=== PATIENT | male | born 1930 | race African-American/Black ===

== ENCOUNTER 2018-10-28 17:20 | Inpatient (IN) | payer OTHER ==
[~2018-10-28] VITALS: Ht 188 cm; Wt 60.5 kg
[2018-10-28] MEDS ORDERED: SODIUM CHLORIDE 0.9% 1,000 ML IV ONE ×2 (17:37→20:00)
[2018-10-28 18:24] LABS: BASOPHILS % 1.1 % (0.0-2.0); EOSINOPHILS % 5.1 % (0.0-5.0); HEMOGLOBIN. 12.1 g/dL (14.0-18.0); LYMPHOCYTES % 18.2 % (20.0-50.0); MEAN CORPUSCULAR VOLUME 86.6 fL (80.0-94.0); MEAN PLATELET VOLUME 7.5 fl (7.4-10.4); MONOCYTES % 11.4 % (2.0-8.0); NEUTROPHILS % 64.2 % (40.0-76.0); PLATELET 186 x1000/uL (130-400); RED BLOOD CELL COUNT 4.04 mill/uL (4.7-6.1); RED CELL DISTRIBUTION WIDTH 13.5 % (11.6-14.6)
[2018-10-28 18:28] LABS: INR 1.1; PROTHROMBIN TIME 11.3 sec (9.1-11.1)
[2018-10-28 18:34] LABS: CHLORIDE 105 mEq/L (98-107)
[2018-10-28 19:11] LABS: CLARITY URINE TURBID (CLEAR); COLOR URINE YELLOW (YELLOW); KETONES URINE NEGATIVE (NEGATIVE); LEUKOCYTE ESTERASE URINE 3+ (NEGATIVE); NITRITE URINE POSITIVE (NEGATIVE); OCCULT BLOOD URINE 1+ (NEGATIVE); PH URINE >=9.0 (4.5-8.0); PROTEIN URINE 2+ (NEGATIVE); SPECIFIC GRAVITY URINE 1.013 (1.005-1.030)
[2018-10-28] MEDS ORDERED: POTASSIUM CHLORIDE 20MEQ TABLET SR PO ONE (20:00)
[2018-10-28] MEDS ORDERED: CEFTRIAXONE 1 G PREMIX 50 ML IV ONE (20:00)
[2018-10-28] MEDS ORDERED: GUAIFENESIN 200MG/10ML SUGAR FREE UDC PO PRN (21:30)
[2018-10-28] MEDS ORDERED: ONDANSETRON HCL 4MG/2ML INJ IV PRN (21:30)
[2018-10-28] MEDS ORDERED: NA PHOS,M-B/NA PHOS,DI-BA ENEMA 118ML PR PRN (21:30)
[2018-10-28] MEDS ORDERED: ACETAMINOPHEN 325MG TABLET PO PRN (21:30)
[2018-10-28] MEDS ORDERED: DIPHENHYDRAMINE 50MG/ML VIAL IV PRN (21:30)
[2018-10-28] MEDS ORDERED: LORAZEPAM 2MG/ML CPJ IV PRN (21:30)
[2018-10-28] MEDS ORDERED: HYDROCODONE/ACETAMINOPHEN 5/325MG TABLET PO PRN (21:30)
[2018-10-28] MEDS ORDERED: IPRATROPIUM/ALBUTEROL 0.5-3(2.5)MG/3ML NEB INH PRN (21:30)
[2018-10-28] MEDS ORDERED: HYDROMORPHONE HCL/PF 2MG/ML CPJ IV PRN (21:30)
[2018-10-28] MEDS ORDERED: DOCUSATE SODIUM 100MG CAPSULE PO PRN (21:30)
[2018-10-28] MEDS ORDERED: MAGNESIUM/ALUMINUM HYDROXIDE/SIMETHICONE 30ML UDC PO PRN (21:30)
[2018-10-29 04:42] LABS: BASOPHILS % 1.2 % (0.0-2.0); HEMATOCRIT. 32.8 % (42.0-52.0); HEMOGLOBIN. 11.5 g/dL (14.0-18.0); LYMPHOCYTES % 21.5 % (20.0-50.0); MEAN CORPUSCULAR HEMOGLOBIN 30.1 pg (28.0-32.0); MEAN CORPUSCULAR VOLUME 85.6 fL (80.0-94.0); MEAN PLATELET VOLUME 7.2 fl (7.4-10.4); MONOCYTES % 13.1 % (2.0-8.0); NEUTROPHILS % 57.2 % (40.0-76.0); PLATELET 170 x1000/uL (130-400); RED BLOOD CELL COUNT 3.83 mill/uL (4.7-6.1); RED CELL DISTRIBUTION WIDTH 13.3 % (11.6-14.6)
[2018-10-29 05:06] LABS: CHLORIDE 111 mEq/L (98-107)
[2018-10-29 05:13] LABS: LDL CHOLESTEROL 79 mg/dL (5-100)
[2018-10-29 05:14] LABS: HDL CHOLESTEROL 42 mg/dL (40-59)
[2018-10-29 05:15] LABS: T4 FREE 1.19 ng/dL (0.76-1.46)
[2018-10-29] MEDS: CLONIDINE 0.1MG TABLET PO PRN (10:12)
[2018-10-29 13:03] VITALS: BP 161/94
[2018-10-29] MEDS: SODIUM CHLORIDE 0.45% 1,000 ML IV SCH ×2 (14:02→14:46)
[2018-10-29] MEDS: ENOXAPARIN 40MG/0.4ML SYR SUBCUT SCH (14:31)
[2018-10-29] MEDS: ASPIRIN 81MG EC TABLET PO SCH (14:33)
[2018-10-29] MEDS: LEVOFLOXACIN 500MG PREMIX 100 ML IV SCH (14:38)
[2018-10-29 15:53] VITALS: BP 148/76
[2018-10-29 20:00] VITALS: BP 130/70
[2018-10-30] VITALS (9 sets, daily range): BP systolic 144–201; BP diastolic 70–101
[2018-10-30] MEDS: CLONIDINE 0.1MG TABLET PO PRN (04:50)
[2018-10-30] MEDS: SODIUM CHLORIDE 0.45% 1,000 ML IV SCH (06:48)
[2018-10-30] MEDS: ASPIRIN 81MG EC TABLET PO SCH (08:46)
[2018-10-30] MEDS: ENOXAPARIN 40MG/0.4ML SYR SUBCUT SCH (08:46)
[2018-10-30] MEDS: LEVOFLOXACIN 500MG PREMIX 100 ML IV SCH (12:54)
[2018-10-30] MEDS ORDERED: DOCU-286 PO (13:08)
[2018-10-30] MEDS ORDERED: DORZ10DR8 EACHEYE (13:08)
[2018-10-30] MEDS ORDERED: PRED5TAB48 PO (13:08)
[2018-10-30] MEDS ORDERED: LATA2.5D2 EACHEYE (13:08)
[2018-10-30] MEDS ORDERED: ABIR250T PO (13:08)
[2018-10-30] MEDS ORDERED: TERA5CAP4 PO (13:08)
[2018-10-30] MEDS ORDERED: ASPI-1159 PO (13:08)
[2018-10-30] MEDS ORDERED: MEMA5TAB15 PO (13:08)
[2018-10-30] MEDS ORDERED: CALC-1042 PO (13:08)
[2018-10-31] MEDS ORDERED: LEVOFLOXACIN 500MG PREMIX 100 ML IV SCH (11:00)
== END 2018-10-30 21:37 | disposition short-term general hospital (02) | DRG 71 ==
LOC: ER 18:20 → 7WST 20:09 → EDBEDREQ 20:15 → EDBEDREQTM 20:15 → ENRESERV 10-29 10:02
PROVIDERS: ADMIT Internal Medicine; ATTEND Internal Medicine
DX: G93.41 Metabolic encephalopathy (principal); N39.0 Urinary tract infection, site not specified; R65.10 Systemic inflammatory response syndrome (SIRS) of non-infectious origin without acute organ dysfunction; E86.0 Dehydration; I10 Essential (primary) hypertension; Z85.9 Personal history of malignant neoplasm, unspecified
CPT/HCPCS: 36415; 71045; 80061; 84439; 84443; 84484; 87077; 87186; 93005; 96361; 96365; 99285; J0696; J1650; J1956; J7030